=== PATIENT | male | born 1970 ===

== ENCOUNTER 2017-12-20 10:27 | Inpatient (IN) | payer OTHER ==
[~2017-12-20] VITALS: Ht 170.2 cm; Wt 86.2 kg
[2017-12-20] VITALS (10 sets, daily range): BP systolic 98–144; BP diastolic 58–95
[~2017-12-20 10:27] MED LIST: NKM; ceFAZolin sod 2 GM in D5W 110 ML IVPB ONE
[2017-12-20] MEDS ORDERED: LR 1000ml 1,000 ML IVLG SCH (11:22)
[2017-12-20] MEDS ORDERED: Labetalol 5mg/ml 20ml vial IV PRN (11:30)
[2017-12-20] MEDS ORDERED: Atropine Inj 1mg/10ml Syr IV PRN (11:30)
[2017-12-20] MEDS ORDERED: LORazepam Inj 2mg/ml 1ml IV PRN (11:30)
[2017-12-20] MEDS ORDERED: Norco 5mg/325mg tab ORAL PRN ×2 (11:30→17:00)
[2017-12-20] MEDS ORDERED: fentaNYL 100 mcg/2 mL IV PRN (11:30)
[2017-12-20] MEDS ORDERED: Metoclopramide 10mg/2ml Inj IVP PRN (11:30)
[2017-12-20] MEDS ORDERED: oxyCODONE HCL/Acetaminophen 5/325mg ORAL PRN (11:30)
[2017-12-20] MEDS ORDERED: DiphenhydrAMINE 50mg/ml Inj IVP PRN (11:30)
[2017-12-20] MEDS ORDERED: Hydromorphone 0.5mg/0.5ml inj IVP PRN (11:30)
[2017-12-20] MEDS ORDERED: Midazolam 2mg/2ml Inj IVP PRN (11:30)
[2017-12-20] MEDS ORDERED: Ketorolac 30mg Inj IV PRN ×2 (11:30)
[2017-12-20] MEDS ORDERED: HYDROcodone/Acetamin 7.5/325 tab ORAL PRN ×3 (11:30→17:00)
[2017-12-20] MEDS ORDERED: Acetaminophen (Non formulary) 100 ML IV ONE (11:30)
--- NOTE | 2017-12-20 11:32 | Anethesia Preoperative Eval ---
Anesthesia Pre-op PMH/ROS General Date of Evaluation: Dec 20, 2017 Time of Evaluation: 12:18 Anesthesiologist: Grady ASA Score: ASA 2 Mallampati Score Class I : Soft palate, uvula, fauces, pillars visible Class II: Soft palate, uvula, fauces visible Class III: Soft palate, base of uvula visible Class IV: Only hard plate visible Mallampati Classification: Class II Surgeon: Shelby Diagnosis: Neck Pain Surgical Procedure: R L4-5 Laminectomy, Microdiscectomy, Foraminotomy Anesthesia History: none Family History: no anesthesia problems Allergies: Coded Allergies: No Known Allergies (Unverified , 12/14/17) Medications: see eMAR Past Medical History Other: obesity Anesthesia Pre-op Phys. Exam Physician Exam Last Vital Signs Date Time Temp Pulse Resp B/P (MAP) Pulse Ox O2 Delivery O2 Flow Rate FiO2 12/20/17 11:11 97.3 63 20 127/78 (94) 97 97.3 12/20/17 10:58 Room Air Constitutional: NAD Neurologic: CN 2-12 intact Cardiovascular: RRR Respiratory: CTA Gastrointestinal: S/NT/ND Airway Exam Mallampati Score: Class II MO: full ROM: full Teeth: intact Anesthesia Pre-op A/P Risk Assessment & Plan Assessment: ASA 2 Plan: Stable Status Change Before Surgery: No Pre-Antibiotics Dru Grams Ancef IV Given Within 1 Hr of Incision: Yes Time Given: 12:41 Wero Rasmussen MD Dec 20, 2017 11:32
[2017-12-20] MEDS ORDERED: Sodium Chloride 10ml vial INJ ONE (11:50)
[2017-12-20] MEDS ORDERED: Lidocaine 1% MPF 10mg/ml 5ml ONE (11:50)
[2017-12-20] MEDS ORDERED: Dexamethasone 4mg/ml vial ONE (11:50)
[2017-12-20] MEDS ORDERED: Lidocaine 1% Plain 30 ml INJ ONE (11:51)
[2017-12-20] MEDS ORDERED: fentaNYL 100 mcg/2 mL IV ONE ×2 (11:51→14:10)
[2017-12-20] MEDS ORDERED: Sterile Water Irrig 1000ml IRRIG ONE (12:00)
[2017-12-20] MEDS ORDERED: Propofol 1,000mg/ 100ml btl IV ONE (12:00)
[2017-12-20] MEDS ORDERED: LR 1000ml ONE (12:00)
[2017-12-20] MEDS ORDERED: NS Irrig 1000ml ONE (12:00)
[2017-12-20] MEDS ORDERED: Zemuron 50mg/5ml Inj IV ONE (12:11)
[2017-12-20] MEDS ORDERED: EPINEPHrine 1mg/1ml Amp ONE (12:15)
[2017-12-20] MEDS ORDERED: Thrombin 5000 units TOPIC ONE ×2 (12:16→12:17)
[2017-12-20] MEDS ORDERED: Bupivacaine 0.5% Inj 30 ml vial INJ ONE (12:16)
[2017-12-20] MEDS ORDERED: Vancomycin 1gm inj IVPB ONE (12:16)
[2017-12-20] MEDS ORDERED: Bacitracin 50000 Units Vial ONE (12:16)
[2017-12-20] MEDS ORDERED: Gelfoam Size TOPIC ONE ×2 (12:17→13:27)
--- NOTE | 2017-12-20 12:23 | Pre-Procedure Note/Attestation ---
Pre-Procedure Note/Attestation Complete Prior to Procedure Procedure Narrative: right l45 laminotomies, medial facetectomies, foraminotomies and microdiscectomy Indications for Procedure Pre-Operative Diagnosis: lumbar radiculopathy Attestation I attest that I discussed the nature of the procedure; its benefits; risks and complications; and alternatives (and the risks and benefits of such alternatives ), prior to the procedure, with the patient (or the patient's legal wholesale representative). I attest that, if there was a reasonable possibility of needing a blood transfusion, the patient (or the patient's legal wholesale representative) was given the [facility] standardized written summary, pursuant to the [place] Blood Safety Act ([place] Health and Safety Code # 1645, as amended). I attest that I re-evaluated the patient just prior to the surgery and that there has been no change in the patient's H&P, except as documented below: Roberto Ryan MD Dec 20, 2017 12:23
--- NOTE | 2017-12-20 14:49 | Immediate Post-Op Evaluation ---
Immediate Post-Op Evalulation Immediate Post-Op Evalulation Procedure: R L4-5 Laminectomy, Microdiscectomy, Foraminotomy Date of Evaluation: Dec 20, 2017 Time of Evaluation: 15:02 IV Fluids: 1000 LR Blood Products: 0 Estimated Blood Loss: 50 Urinary Output: 0 Blood Pressure Systolic: 135 Blood Pressure Diastolic: 89 Pulse Rate: 97 Respiratory Rate: 16 O2 Sat by Pulse Oximetry: 100 Temperature (Fahrenheit): 98 Pain Score (1-10): 2 Nausea: No Vomiting: No Complications 0 Patient Status: awake, reacts, patent, extubated, none Hydration Status: adequate Dru Grams Ancef IV Given Within 1 Hr of Incision: Yes Time Given: 12:41 Wero Rasmussen MD Dec 20, 2017 14:49
--- NOTE | 2017-12-20 15:22 | Diagnostic Imaging Report ---
Indication: Low back and right lower extremity pain; intraoperative Technique: Intraoperative images Comparison: none Findings: Initial image demonstrates a needle projected posterior to what is presumably L4. Subsequent images demonstrate surgical tool posterior to the L4-5 disc Impression: Intraoperative imaging, as described
[2017-12-20] MEDS ORDERED: Morphine Sulfate 4mg/ml Inj (IV USE ONLY) IV PRN ×2 (17:00)
[2017-12-20] MEDS ORDERED: Naloxone 0.4mg/ml Inj IVP PRN (17:00)
[2017-12-20] MEDS: D5 1/2NS 1,000 ML IV SCH (17:08)
[2017-12-20] MEDS: Docusate 100mg cap ORAL SCH (17:29)
[2017-12-20] MEDS: Morphine Sulfate 2mg/ml Inj(IV/IM USE ONLY) IV PRN ×2 (19:59→20:05)
--- NOTE | 2017-12-20 23:30 | Operative Note - Dictated ---
DATE OF OPERATION: 12/20/2017 PREOPERATIVE DIAGNOSIS: L4-L5 disk protrusion with stenosis and right lower extremity radiculopathy. POSTOPERATIVE DIAGNOSIS: L4-L5 disk protrusion with stenosis and right lower extremity radiculopathy. PROCEDURE PERFORMED: 1. Right L4-L5 medial facetectomy, interlumbar laminotomy, foraminotomy, and microdiskectomy. 2. Intraoperative use of microscope. 3. Intraoperative use of fluoroscopy. SURGEON: Roberto Ryan M.D. BOOKMOBILE LIBRARIAN: Josephine Rodriguez M.D. ANESTHESIA: General endotracheal anesthesia. ANESTHESIOLOGIST: Wero Rasmussen M.D. INTRAOPERATIVE FINDINGS: 1. L4-L5 lateral recess stenosis, disk protrusion and foraminal stenosis. 2. Impingement of exiting right L4 and traversing right L5 nerve root. ESTIMATED BLOOD LOSS: A 50 mL. FLUIDS: A 1000 mL crystalloid. INDICATIONS: This is a pleasant gentleman, who failed nonoperative treatments. Option for above treatment was given. Risks, alternatives, and benefits were discussed with the patient at length. Risks include, but not limited to, anesthesia complications including , medical complications including liver, kidney, cardiopulmonary deficits, infection, bleeding, dural tear, CSF leak, nerve root injury, pars fracture, instability, reherniation, as well as continued symptoms. The patient understood and wished to proceed. Written and verbal consent was given. DESCRIPTION OF OPERATION: The patient was brought into the operating room supine on a stretcher. Appropriate IV lines were placed by the anesthesiologist and 2 g of Ancef was administered. Anesthesia was induced and the patient was successfully intubated. Sequential compression devices were placed on to the bilateral lower extremities. The patient was gently turned over prone onto the Arian frame table. All bony prominences were well padded. The abdomen was assured to lay freely. The L4-L5 interspace was positively located by fluoroscopy and an indelible marker was used to franklin the midline. The patient was prepped and draped in usual sterile fashion with alcohol, chlorhexidine scrub, ChloraPrep, and Ioban draping. At this point, the intraoperatively sterilely draped microscope was brought into the field and the midline incision was carried out and a subperiosteal dissection at L4-L5 was accomplished. The lateral joint facet capsule was well preserved and retractors were set in place. A radiopaque marker was placed at the lower pedicle level and lateral fluoroscopy identified the L5 pedicle and thus the L4-L5 interspace. At this point, with a high-speed drill, straight and curved curettes #2 through #5 Kerrison punches, inter lumbar laminotomy and medial facetectomy was accomplished with the curved curette. The ligamentum flavum was gently removed and complete decompression of the lateral recess and foramina entailed with #2 and #2 Kerrison punches until the exiting L4 nerve root was patent and the traversing L5 nerve root was patent. At this point, a [place] 4 retractor was used to retract the neural elements and a nerve root retractor was used to hold the neural elements and a disk protrusion was found centrally and right paracentrally at L4-L5. A #11 scalpel was used to make a horizontal slit incision into the posterior annulus and with the use of a Ceron rongeur, Pablo Skaggs Woodson probe, microdiskectomy was accomplished. This was done with the use of the intraoperatively sterilely draped microscope and microdissection of the neural elements entailed. All loose debris was removed from the distal until the floor of the canal was flat. Disk space irrigation was done. All loose debris was removed and at this point the inspection of the central canal, lateral recess, and foramina revealed complete and adequate decompression. Valsalva was done at 40 mmHg. There was no CSF leak and attention was diverted to closure. The wound was copiously irrigated with triple antibiotic solution. A 1 g of vancomycin powder was placed suprafascially and subfascially. The dorsal lumbar fascia was closed with #1 Vicryl suture in a watertight interrupted fashion. The subdermal and subcuticular layers were closed with 3-0 Vicryl sutures. The skin was closed with Dermabond. All sponge, needle, and instrument counts were correct. No complications during the case. The sterile dressing tape was placed. The patient was turned supine, was extubated in stable condition and was found to be neurovascularly intact and was admitted to the hospital for monitoring. Roberto Ryan M.D. DR: Effie JOB#: [id number] CC:
[2017-12-21 00:58] VITALS: BP 101/55
[2017-12-21] MEDS: D5 1/2NS 1,000 ML IV SCH ×2 (03:23→13:00)
[2017-12-21 04:00] VITALS: BP 104/60
--- NOTE | 2017-12-21 07:30 | 48 Hour Post Anesthesia Eval ---
Post Anesthesia Evaluation Procedure: R L4-5 Laminectomy, Microdiscectomy, Foraminotomy Date of Evaluation: Dec 21, 2017 Time of Evaluation: 07:28 Blood Pressure Systolic: 104 0: 56 Pulse Rate: 72 Respiratory Rate: 20 Temperature (Fahrenheit): 97.5 O2 Sat by Pulse Oximetry: 98 Airway: patent Nausea: No Vomiting: No Pain Intensity: 2 Hydration Status: adequate Cardiopulmonary Status: stable Mental Status/LOC: patient returned to baseline Follow-up Care/Observations: n/a Post-Anesthesia Complications: none Follow-up care needed: ready to discharge Je Woodward MD Dec 21, 2017 07:30
[2017-12-21 08:00] VITALS: BP 115/71
[2017-12-21] MEDS: Docusate 100mg cap ORAL SCH (09:04)
[2017-12-21 12:00] VITALS: BP 114/69
--- NOTE | 2017-12-21 12:52 | History and Physical ---
History of Present Illness General Date patient seen: Dec 21, 2017 Present Illness HPI 47 year old male with cervical radiculopathy, admitted for R L4-5 Laminectomy, Microdiscectomy, Foraminotomy. Post operatively he is admitted for post op care. Allergies: Coded Allergies: No Known Allergies (Unverified , 12/14/17) Medication History Scheduled No Known Medications* (NKM - No Known Medications*), 0 ., (Reported) Patient History Healthcare decision maker SADAF- Resuscitation status Full Code Advanced Directive on File Past Medical/Surgical History Past Medical/Surgical History: (1) Lumbar radiculopathy Physical Exam General Appearance: WD/WN Lines, tubes and drains: peripheral HEENT: normocephalic, atraumatic Neck: non-tender, normal alignment Respiratory/Chest: chest wall non-tender, lungs clear Breasts: no masses Cardiovascular/Chest: normal peripheral pulses Abdomen: normal bowel sounds Extremities: normal range of motion Skin Exam: normal pigmentation Last 24 Hour Vital Signs Date Time Temp Pulse Resp B/P (MAP) Pulse Ox O2 Delivery O2 Flow Rate FiO2 12/21/17 12:00 97.1 66 20 114/69 (84) 98 97.1 66 12/21/17 08:15 Room Air 12/21/17 08:00 98.0 75 18 115/71 (86) 100 98.0 12/21/17 07:30 207.5 72 20 98 12/21/17 04:00 97.9 65 19 104/60 (75) 100 97.9 12/21/17 00:58 97.7 69 19 101/55 (70) 98 97.7 12/20/17 21:00 Nasal Cannula 2.0 12/20/17 20:05 97.5 74 17 98/58 (71) 98 97.5 12/20/17 17:30 96.7 83 20 134/69 (90) 96.7 12/20/17 16:10 Nasal Cannula 3.0 12/20/17 16:10 97.8 78 20 122/77 (92) 99 97.8 12/20/17 15:50 98.3 12/20/17 15:35 98.3 76 17 128/82 98 Nasal Cannula 3 98.3 12/20/17 15:20 80 18 126/85 100 Nasal Cannula 3 12/20/17 15:20 98.3 8/1/18 15:10 82 11 132/81 100 Nasal Cannula 3 12/20/17 15:00 98 18 144/95 100 Simple Mask 6 12/20/17 14:56 97 20 144/95 100 Simple Mask 6 12/20/17 14:51 98 93 16 135/89 100 Simple Mask 6 98.0 12/20/17 14:49 208.4 97 16 100 Intake and Output 12/20/17 12/21/17 19:00 07:00 Intake Total 1900 ml 1660 ml Output Total 450 ml Balance 1450 ml 1660 ml Intake Oral 300 ml 360 ml IV Total 1600 ml 1300 ml Output Urine Total 400 ml Estimated Blood Loss 50 ml # Voids 1 2 Height (Feet): 5 Height (Inches): 7.00 Weight (Pounds): 190 Medications Current Medications Medications (Trade) Dose Ordered Sig/Nancy Route PRN Reason Start Time Stop Time Status Last Admin Dose Admin Acetaminophen (Tylenol) 650 mg Q4H PRN ORAL headache or temp>101 12/20/17 17:00 01/19/18 16:59 Acetaminophen/ Hydrocodone Bitart ([place] 5/325) 1 tab Q3H PRN ORAL Mild Pain (Pain Scale 1-3) 12/20/17 17:00 12/27/17 16:59 Acetaminophen/ Hydrocodone Bitart ([place] 7.5/325) 1 tab Q3H PRN ORAL Moderate Pain (Pain Scale 4-6) 12/20/17 17:00 12/27/17 16:59 Acetaminophen/ Hydrocodone Bitart ([place] 7.5/325) 2 tab Q3H PRN ORAL Severe Pain (Pain Scale 7-10) 12/20/17 17:00 12/27/17 16:59 Dextrose/Sodium Chloride 1,000 ml @ 100 mls/hr Q10H IV 12/20/17 17:00 01/19/18 16:59 12/21/17 03:23 Docusate Sodium (Colace) 100 mg TWICE A DAY ORAL 12/20/17 18:00 01/19/18 17:59 12/21/17 09:04 Morphine Sulfate (Morphine Sulfate) 2 mg Q4H PRN IV Mild Pain (Pain Scale 1-3) 12/20/17 17:00 12/27/17 16:59 12/20/17 20:05 Morphine Sulfate (Morphine Sulfate) 4 mg Q3H PRN IV Severe Pain (Pain Scale 7-10) 12/20/17 17:00 12/27/17 16:59 Morphine Sulfate (Morphine Sulfate) 4 mg Q4H PRN IV Moderate Pain (Pain Scale 4-6) 12/20/17 17:00 12/27/17 16:59 Naloxone HCl (Narcan) 0.1 mg PRN PRN IVP RR<12/min, pt unarousable 12/20/17 17:00 01/19/18 16:59 Assessment/Plan Problem List: (1) R L4-5 Laminectomy (2) Lumbar radiculopathy ICD Codes: M54.16 - Radiculopathy, lumbar region SNOMED: [id number] Assessment/Plan post op care pain management symptomatic treatment dvt prophylaxis Destinee Wilson MD Dec 21, 2017 12:52
[2017-12-21] MEDS ORDERED: NORCO 10-325 T1 EACH ORAL (14:21)
[2017-12-21] MEDS ORDERED: SOMA350 MG PO (14:22)
[2017-12-21] MEDS ORDERED: NAPROXEN250 MG ORAL (14:23)
[2017-12-21] MEDS ORDERED: D5 1/2NS 1000ml IV ONE (14:59)
--- NOTE | 2017-12-22 12:12 | Discharge Summary ---
Discharge Summary Discharge Summary _ DATE OF ADMISSION: 12/20/2017 DATE OF DISCHARGE: 12/21/2017 CONSULTANTS: Dr. Destinee Wilson BRIEF HOSPITAL COURSE: Patient is a 47-year-old male, diagnosed with L4-L5 disc protrusion with stenosis and right lower extremity radiculopathy. He failed nonoperative treatment and was admitted and underwent right L4-L5 medial facetectomy, interlumbar laminotomy, foraminotomy and microdiscectomy. He tolerated procedure well and postoperatively was admitted for pain management. He was placed on SCDs for DVT prophylaxis. He was encouraged use of incentive spirometry. Diet was advanced. He underwent PT and OT therapy. He had good pain control and was ambulating well. Vitals were stable. He was discharged home. FINAL DIAGNOSES: L4-L5 disc protrusion with stenosis and right lower extremity radiculopathy Status post right L4-L5 medial facetectomy, interlumbar laminotomy, foraminotomy and microdiscectomy DISPOSITION: Patient was discharged home. DISCHARGE MEDICATIONS: Refer to Discharge Medication List. DISCHARGE INSTRUCTIONS: Follow up within a week. I have been assigned to dictate discharge summary on this account, and I was not involved in the patient's management. Mercedes Bolanos NP Dec 22, 2017 12:11
== END 2017-12-21 15:00 | disposition home or self-care (01) | DRG 520 ==
LOC: SDSOVERFLO 10:27 → 3E 16:21
PROC: 01NB0ZZ Release Lumbar Nerve, Open Approach (ICD-10-PCS; principal; 2017-12-20 12:30)
PROC: 0SB20ZZ Excision of Lumbar Vertebral Disc, Open Approach (ICD-10-PCS; principal; 2017-12-20 12:30)
DX: M51.16 Intervertebral disc disorders with radiculopathy, lumbar region (principal); M48.061 Spinal stenosis, lumbar region without neurogenic claudication
CPT/HCPCS: 36415; 72020; 76001; 86850; 86900; 86901; 87081; 94003; 94150; J2405